=== PATIENT | female | born 1970 | race Caucasian/White ===

== ENCOUNTER 2018-11-04 01:58 | Emergency (ER) | payer MEDICAID ==
[~2018-11-04] VITALS: Ht 166.4 cm; Wt 60.5 kg
[~2018-11-04 01:58] MED LIST: TRAM50TA2 PO
[2018-11-04 02:54] LABS: BASOPHILS % (AUTO) 0.5 % (0-1); EOSINOPHILS # (AUTO) 0.2 X10'3 (0-0.9); EOSINOPHILS % (AUTO) 2.4 % (0-6); HEMATOCRIT 31.6 % (35.0-45.0); HEMOGLOBIN 10.2 g/dl (12.0-16.0); LYMPHOCYTES % (AUTO) 13.1 % (21-51); MEAN CORPUSCULAR HEMOGLOBIN 24.3 PG (27.0-31.0); MEAN CORPUSCULAR HGB CONC 32.1 g/dL (33.0-36.5); MEAN CORPUSCULAR VOLUME 75.6 FL (78-98); MEAN PLATELET VOLUME 9.1 FL (7.4-10.4); MONOCYTES # (AUTO) 0.6 X10'3 (0-0.9); MONOCYTES % (AUTO) 8.7 % (2-12); NEUTROPHILS # (AUTO) 5.5 X10'3 (1.8-7.7); NEUTROPHILS % (AUTO) 75.3 % (42-75); PLATELET COUNT 187 X10'3 (140-440); RED BLOOD COUNT 4.18 X10'6 (4.20-5.60); RED CELL DISTRIBUTION WIDTH 16.5 % (11.5-14.5); WHITE BLOOD COUNT 7.3 X10'3 (4.5-11.0)
[2018-11-04] MEDS ORDERED: acetaminophen 325mg tablet PO ONE (02:55)
[2018-11-04] MEDS ORDERED: ketorolac trometh. 30mg/ml inj. IV ONE (02:55)
[2018-11-04 03:04] LABS: ALANINE AMINOTRANSFERASE 14 U/L (12-78); ALBUMIN 3.7 G/DL (3.4-5.0); ALBUMIN/GLOBULIN RATIO 1.1 (1.1-1.5); ALKALINE PHOSPHATASE 68 IU/L (46-116); ANION GAP 10 (8-16); ASPARTATE AMINO TRANSFERASE 10 U/L (10-37); BILIRUBIN,TOTAL 0.3 MG/DL (0.1-1.0); BLOOD UREA NITROGEN 11 MG/DL (7-18); BUN/CREATININE RATIO 10.5 (6.6-38.0); CALCIUM 8.8 MG/DL (8.5-10.1); CHLORIDE 106 MMOL/L (99-107); CREATININE 1.05 MG/DL (0.40-0.90); GLUCOSE 115 MG/DL (70-104); POTASSIUM 3.4 MMOL/L (3.5-5.1); SODIUM 140 MMOL/L (135-145); TOTAL CARBON DIOXIDE 23.7 MMOL/L (24-32); eGFR 56 ML/MIN
[2018-11-04 04:46] LABS: URINE HCG NEGATIVE (NEG)
[2018-11-04 04:50] LABS: CLARITY,URINE CLEAR (Clear); COLOR,URINE STRAW (Yellow); GLUCOSE, URINE NEGATIVE (Neg); KETONES,URINE NEGATIVE (Neg); LEUKOCYTE ESTERASE ,URINE NEGATIVE (Neg); NITRITES, URINE NEGATIVE (Neg); OCCULT BLOOD,URINE MODERATE (Neg); PH,URINE 5.5 (4.8-8.0); PROTEIN,URINE NEGATIVE (Neg); UROBILINOGEN,URINE 0.2 E.U/dL (0.2-1.0)
[2018-11-04 04:52] LABS: UA COLLECTION TYPE CLN CATCH MIDSTREAM
[2018-11-04 05:10] LABS: BACTERIA,URINE NONE SEEN /HPF (Neg); MUCUS STRANDS NONE SEEN /LPF (Neg); RBC,URINE 0-2 /HPF (0-2); SQUAMOUS EPITHELIAL CELL,UR FEW /LPF (FEW); WBC,URINE 0-4 /HPF (0-4)
[2018-11-04] MEDS ORDERED: IBUP-1986 PO (05:46)
[2018-11-04 05:57] VITALS: BP 117/71
== END 2018-11-04 05:59 | disposition home or self-care (01) ==
LOC: ER 01:58
DX: B34.9 Viral infection, unspecified (principal); N93.8 Other specified abnormal uterine and vaginal bleeding; Z98.890 Other specified postprocedural states; Z56.0 Unemployment, unspecified; Z88.5 Allergy status to narcotic agent; Z79.899 Other long term (current) drug therapy
CPT/HCPCS: 36415; 71046; 76830; 76856; 80053; 81001; 81025; 83605; 85025; 87040; 96374; 99284; J1885

== ENCOUNTER 2018-11-10 15:38 | Emergency (ER) | payer MEDICAID ==
[~2018-11-10] VITALS: Ht 165.1 cm; Wt 66.5 kg
[~2018-11-10 15:38] MED LIST changes: +IBUP-1986 PO
[2018-11-10 15:42] VITALS: BP 171/95
--- NOTE | 2018-11-10 15:58 | NUR ---
relieving RN for break, Dr Lanza at bedside
[2018-11-10] MEDS ORDERED: BENZ-16 PO (16:07)
== END 2018-11-10 16:50 | disposition home or self-care (01) ==
LOC: ER 15:40
DX: J06.9 Acute upper respiratory infection, unspecified (principal); F17.200 Nicotine dependence, unspecified, uncomplicated; Z87.11 Personal history of peptic ulcer disease; Z79.899 Other long term (current) drug therapy
CPT/HCPCS: 99283

== ENCOUNTER 2019-05-17 12:56 | Emergency (ER) | payer MEDICAID ==
[~2019-05-17] VITALS: Ht 165.1 cm; Wt 63.0 kg
[2019-05-17] MEDS ORDERED: normal saline 1000ML IV soln IVB ONE (16:20)
[2019-05-17] MEDS ORDERED: morphine 4 MG/ML inj SYRINge IV PRN (16:20)
[2019-05-17] MEDS ORDERED: iohexol 300mg/ml 100ml inj. ONE (16:32)
--- NOTE | 2019-05-17 16:56 | NUR ---
PT IN [facility] ROOM FOR EXAM
[2019-05-17 17:08] LABS: BASOPHILS # (AUTO) 0.1 X10'3 (0-0.2); BASOPHILS % (AUTO) 0.7 % (0-1); EOSINOPHILS # (AUTO) 0.3 X10'3 (0-0.9); EOSINOPHILS % (AUTO) 3.1 % (0-6); HEMATOCRIT 37.1 % (35.0-45.0); HEMOGLOBIN 11.9 g/dl (12.0-16.0); LYMPHOCYTES # (AUTO) 2.4 X10'3 (1.1-4.8); LYMPHOCYTES % (AUTO) 26.5 % (21-51); MEAN CORPUSCULAR HEMOGLOBIN 24.2 PG (27.0-31.0); MEAN CORPUSCULAR HGB CONC 32.2 g/dL (33.0-36.5); MEAN CORPUSCULAR VOLUME 75.3 FL (78-98); MEAN PLATELET VOLUME 9.3 FL (7.4-10.4); MONOCYTES # (AUTO) 0.7 X10'3 (0-0.9); MONOCYTES % (AUTO) 7.7 % (2-12); NEUTROPHILS # (AUTO) 5.6 X10'3 (1.8-7.7); PLATELET COUNT 251 X10'3 (140-440); RED BLOOD COUNT 4.93 X10'6 (4.20-5.60); RED CELL DISTRIBUTION WIDTH 20.1 % (11.5-14.5)
[2019-05-17 17:23] LABS: ALANINE AMINOTRANSFERASE 23 U/L (12-78); ALBUMIN/GLOBULIN RATIO 1.2 (1.1-1.5); ALKALINE PHOSPHATASE 65 IU/L (46-116); ANION GAP 7 (8-16); ASPARTATE AMINO TRANSFERASE 16 U/L (10-37); BILIRUBIN,TOTAL 0.2 MG/DL (0.1-1.0); BLOOD UREA NITROGEN 12 MG/DL (7-18); BUN/CREATININE RATIO 15.8 (6.6-38.0); CALCIUM 8.7 MG/DL (8.5-10.1); CHLORIDE 106 MMOL/L (99-107); CREATININE 0.76 MG/DL (0.40-0.90); GLUCOSE 85 MG/DL (70-104); POTASSIUM 3.4 MMOL/L (3.5-5.1); SODIUM 141 MMOL/L (135-145); TOTAL CARBON DIOXIDE 27.6 MMOL/L (24-32); TOTAL PROTEIN 7.4 G/DL (6.4-8.2); eGFR 82 ML/MIN
--- NOTE | 2019-05-17 17:49 | NUR ---
pt c/o heavy bleeding from vaginal canal after fall. and slight blood when urinating.
[2019-05-17 18:03] LABS: ANISOCYTOSIS 3+; MICROCYTOSIS 1+; PLATELET ESTIMATE NORMAL
[2019-05-17 18:04] LABS: ELLIPTOCYTES 1+
[2019-05-17 18:16] VITALS: BP 152/60
== END 2019-05-17 18:07 | disposition home or self-care (01) ==
LOC: ER 12:56
DX: N93.9 Abnormal uterine and vaginal bleeding, unspecified (principal); Z98.890 Other specified postprocedural states; Z79.899 Other long term (current) drug therapy
CPT/HCPCS: 36415; 74177; 80053; 85025; 96374; 99285; J2270; J7030; Q9967

== ENCOUNTER 2022-01-31 12:23 | Emergency (ER) | payer MEDICAID ==
[~2022-01-31] VITALS: Ht 166.4 cm; Wt 72.7 kg
[2022-01-31 12:56] VITALS: BP 158/99
== END 2022-01-31 16:24 | disposition left against medical advice (07) ==
LOC: ER 12:24
DX: J02.9 Acute pharyngitis, unspecified (principal); Z53.21 Procedure and treatment not carried out due to patient leaving prior to being seen by health care provider

== ENCOUNTER 2022-02-03 16:51 | Emergency (ER) | payer MEDICAID ==
[~2022-02-03] VITALS: Ht 165.1 cm; Wt 71.0 kg
[2022-02-03 17:30] VITALS: BP 167/101
[2022-02-03] MEDS ORDERED: GUAI400T92 PO (18:15)
[2022-02-03] MEDS ORDERED: AZIT250T2 PO (18:15)
[2022-02-03] MEDS ORDERED: CIPR2.5D21 LEFTEYE (18:23)
== END 2022-02-04 | disposition home or self-care (01) ==
LOC: ER 02-04 03:39
DX: J01.90 Acute sinusitis, unspecified (principal); H10.32 Unspecified acute conjunctivitis, left eye; Z91.040 Latex allergy status
CPT/HCPCS: 99283

== ENCOUNTER 2023-08-31 18:19 | Emergency (ER) | payer MEDICAID, OTHER ==
[~2023-08-31] VITALS: Ht 165.1 cm; Wt 68.0 kg
[~2023-08-31 18:19] MED LIST changes: +GUAI400T92 PO
[2023-08-31] MEDS ORDERED: NO HOME MEDS (20:04)
[2023-08-31] MEDS ORDERED: CYCL-1 PO (20:21)
[2023-08-31] MEDS ORDERED: NAPR-56 PO (20:21)
[2023-08-31] MEDS: ketorolac tromethamine 15mg/ml inj. IM ONE (20:51)
[2023-08-31 21:00] VITALS: BP 132/74; PULSE 78; TEMP 98.5; O2SAT 97
[2023-08-31 21:03] VITALS: RESP 18
== END 2023-08-31 21:03 | disposition home or self-care (01) ==
LOC: ER 18:20
DX: M54.2 Cervicalgia (principal); Z91.040 Latex allergy status
CPT/HCPCS: 96372; 99283; J1885